=== PATIENT | male | born 1960 | race Caucasian/White ===

== ENCOUNTER 2018-11-30 21:05 | Emergency (ER) | payer OTHER ==
--- NOTE | 2018-11-30 22:02 | EDM.PDOC ---
ED HPI GENERAL MEDICAL PROBLEM - General Chief Complaint: Allergic Reaction Stated Complaint: DEER FLY Time Seen by Provider: 11/30/18 21:35 Source of Information: Reports: Patient, Family History Limitations: Reports: No Limitations - History of Present Illness INITIAL COMMENTS - FREE TEXT/NARRATIVE: 57-year-old male bit by some deer flies tonight followed by some generalized itching and felt like his throat was tightening and tongue was swelling. He has had some fairly dramatic local reactions to the bites in the past so became worried, took some Benadryl and came into the emergency room. The bites occurred an hour and a half ago and he now feels fairly normal. Vitals are stable. Onset: Sudden Duration: Hour(s): (Within the last 2 hours) Associated Symptoms: Reports: Other (Generalized itching) Treatments WRAPPER HAND: Reports: Other Medication(s), Other (see below) Other Treatments WRAPPER HAND: benadryl - Related Data Allergies Allergy/AdvReac Type Severity Reaction Status Date / Time Penicillins Allergy Rash Verified 11/30/18 21:29 Home Meds: Home Meds atorvaSTATin [Lipitor] 11/30/18 [History] Past Medical History Cardiovascular History: Reports: High Cholesterol Social & Family History - Tobacco Use Smoking Status *Q: Never Smoker ED ROS ALLERGIC REACTION - Review of Systems Review Of Systems: See Below Constitutional: Denies: Fever, Chills HEENT: Reports: Other (Throat scratching, swelling and tongue thickness) Respiratory: Denies: Shortness of Breath Cardiovascular: Denies: Chest Pain GI/Abdominal: Denies: Abdominal Pain, Nausea, Vomiting Skin: Reports: Pruritis (Widespread) Neurological: Denies: Headache ED EXAM GENERAL NO PERIP PULSE - Physical Exam Exam: See Below Exam Limited By: No Limitations General Appearance: Alert, No Apparent Distress Eye Exam: Bilateral Eye: Normal Inspection Throat/Mouth: Normal Inspection, Normal Lips Head: Atraumatic Respiratory/Chest: No Respiratory Distress, Lungs Clear Extremities: Other (Some mild swelling around the left ankle with redness and tenderness from recent deer fly bite) Course - Vital Signs Last Recorded V/S: Last Vital Signs Temp 97.2 F 11/30/18 21:33 Pulse 80 11/30/18 21:33 Resp 18 11/30/18 21:33 BP 147/96 H 11/30/18 21:33 Pulse Ox 96 11/30/18 21:33 - Re-Assessments/Exams Free Text/Narrative Re-Assessment/Exam: 11/30/18 23:40 I don't see any systemic objective findings at this time but the patient certainly experienced subjective symptoms. [place] so was given prednisone to take 50 mg daily for the next 6 days, and a prescription for an EpiPen to use if significant symptoms develop. He'll return anytime if worsening and not responding to treatment, or if he uses his EpiPen he will come in for further care. Departure - Departure Time of Disposition: 22:12 Disposition: Home, Self-Care 01 Clinical Impression: Allergic reaction - Discharge Information Instructions: Allergies, Adult, [id number] Referrals: PCP,None [Primary Care Provider] - Forms: ED Department Discharge Care Plan Goals: A repeat dose of Benadryl tonight would be helpful, feel you're EpiPen prescription tomorrow and have available if needed. Take prednisone as directed.
== END 2018-11-30 22:13 | disposition home or self-care (01) ==
LOC: JP.ED 21:05
DX: S90.562A Insect bite (nonvenomous), left ankle, initial encounter (principal); E78.00 Pure hypercholesterolemia, unspecified; Z88.0 Allergy status to penicillin; Z79.899 Other long term (current) drug therapy; W57.XXXA Bitten or stung by nonvenomous insect and other nonvenomous arthropods, initial encounter
CPT/HCPCS: 99282